=== PATIENT | female | born 1945 | race Caucasian/White ===

== ENCOUNTER 2018-08-16 19:40 | Inpatient (IN) | payer OTHER, MEDICARE ==
[~2018-08-16] VITALS: Ht 152.4 cm; Wt 88.1 kg
--- NOTE | 2018-08-16 19:47 | ED.ADGEN ---
Past History Past Medical History: Arthritis, CAD, Depression, Diabetes, GERD, High Cholesterol, Hypertension, Other Past Surgical History: Other Past Surgical History 08/15/18- rt PROS.[email or web address] Adult General Chief Complaint Chief Complaint ".. They sent me over because I am anemic..." HPI HPI Patient is a 73 year old FEMALE who presents with hx of anemia on CBC labs at [place] reports a Hgb of 6.4. Pt. under went Rt. Knee/Tib repair on . transfer to [place] for rehab. Pt. currently on Dr. Salgado service. Pt. follows with Dr. Taylor as primary. . Pt. has also medical hx of hypertension , hyperlipidemia, GERD, depression, allergic rhinitis, coronary artery disease, recent right Tibia and knee fracture with surgical repair and right ankle sprain. Review of Systems Review of Systems Constitutional: Denies fever or chills [] Eyes: Denies change in visual acuity, redness, or eye pain [] HENT: Denies nasal congestion or sore throat [] Respiratory: Denies cough or shortness of breath [] Cardiovascular: No additional information not addressed in HPI [] GI: Denies abdominal pain, nausea, vomiting, bloody stools or diarrhea [] : Denies dysuria or hematuria [] Musculoskeletal: Chronic back pain or joint pain. Generalized weakness. New Rt knee and ankle pain Integument: Denies rash or skin lesions [] Neurologic: Denies headache, focal weakness or sensory changes [] Endocrine: Denies polyuria or polydipsia [] All other systems were reviewed and found to be within normal limits, except as documented in this note. Family History Family History Non-contributory Current Medications Current Medications See Nursing from home meds Current Medications Medications (Trade) Dose Ordered Sig/Reed Start Time Stop Time Status Last Admin Dose Admin Acetaminophen (Tylenol) 1,000 mg 1X ONCE 08/16/18 20:00 08/16/18 20:43 DC Diphenhydramine HCl (Benadryl) 25 mg 1X ONCE 08/16/18 20:00 08/16/18 20:44 DC Ondansetron HCl (Zofran) 4 mg PRN Q4HRS PRN 08/16/18 20:00 08/16/18 22:19 DC Allergies Allergies Allergies Coded Allergies Type Severity Reaction Last Updated Verified Nitrate Analogues Allergy Unknown 08/16/18 Yes adhesive Allergy Unknown 08/16/18 Yes diphenhydramine Allergy Unknown 08/16/18 Yes latex Allergy Unknown 08/16/18 Yes mushroom Allergy Unknown 08/16/18 Yes Adhesives, Celebrex, Benadryl, Latex, Mushroom, Nitrate Analoges. Physical Exam Physical Exam Constitutional:, no acute distress, non-toxic appearance. [] HENT: Normocephalic, atraumatic, bilateral external ears normal, oropharynx moist, no oral exudates, nose normal. [] Eyes: PERRLA, EOMI, conjunctiva normal, no discharge. Glasses Neck: Normal range of motion, no tenderness, supple, no stridor. [] Cardiovascular:Heart rate regular rhythm, no murmur [] Lungs & Thorax: Bilateral breath sounds equal at apexes on auscultation [] Abdomen: Bowel sounds normal, soft, no tenderness, no masses, no pulsatile masses. [] Skin: Warm, dry, no erythema, no rash. Pale. Back: No tenderness, no CVA tenderness. [] Extremities: Upper arms no tenderness arms, no cyanosis, no clubbing, ROM intact, no edema. []Does have tenderness Rt leg and ankle. Hx.surgery in Rt.knee and ankle edema and pain. Rt knee splinted Neurologic: Alert and oriented X 3, moves all ext. on request, no gross sensory deficits noted, pt. reports no focal deficits noted. [] Psychologic: Affect anxious, judgement normal, mood normal. [] Current Patient Data Vital Signs Vital Signs Date Time Temp Pulse Resp B/P (MAP) Pulse Ox O2 Delivery O2 Flow Rate FiO2 08/16/18 19:40 100.0 83 18 96 Room Air Lab Results Laboratory Tests Test 08/16/18 20:15 White Blood Count 10.1 x10^3/uL (4.0-11.0) Red Blood Count 2.23 x10^6/uL (3.50-5.40) L Hemoglobin 6.7 g/dL (12.0-15.5) *L Hematocrit 19.7 % (36.0-47.0) *L Mean Corpuscular Volume 88 fL (79-100) Mean Corpuscular Hemoglobin 30 pg (25-35) Mean Corpuscular Hemoglobin Concent 34 g/dL (31-37) Red Cell Distribution Width 13.6 % (11.5-14.5) Platelet Count 211 x10^3/uL (140-400) Neutrophils (%) (Auto) 69 % (31-73) Lymphocytes (%) (Auto) 17 % (24-48) L Monocytes (%) (Auto) 13 % (0-9) H Eosinophils (%) (Auto) 1 % (0-3) Basophils (%) (Auto) 0 % (0-3) Neutrophils # (Auto) 6.9 x10^3uL (1.8-7.7) Lymphocytes # (Auto) 1.7 x10^3/uL (1.0-4.8) Monocytes # (Auto) 1.3 x10^3/uL (0.0-1.1) H Eosinophils # (Auto) 0.1 x10^3/uL (0.0-0.7) Basophils # (Auto) 0.0 x10^3/uL (0.0-0.2) Sodium Level 133 mmol/L (136-145) L Potassium Level 4.6 mmol/L (3.5-5.1) Chloride Level 99 mmol/L (98-107) Carbon Dioxide Level 29 mmol/L (21-32) Anion Gap 5 (6-14) L Blood Urea Nitrogen 16 mg/dL (7-20) Creatinine 0.8 mg/dL (0.6-1.0) Estimated GFR (Cockcroft-Gault) 70.5 Glucose Level 159 mg/dL (70-99) H Calcium Level 7.8 mg/dL (8.5-10.1) L Total Bilirubin 0.8 mg/dL (0.2-1.0) Direct Bilirubin 0.2 mg/dL (0.0-0.2) Aspartate Amino Transferase (AST) 32 U/L (15-37) Alanine Aminotransferase (ALT) 25 U/L (14-59) Alkaline Phosphatase 52 U/L (46-116) Total Protein 5.2 g/dL (6.4-8.2) L Albumin 2.4 g/dL (3.4-5.0) L EKG EKG [] Radiology/Procedures Radiology/Procedures [] Course & Med Decision Making Course & Med Decision Making Pertinent Labs and Imaging studies reviewed. (See chart for details) Pt. admitted for transfusion and serial hemoglobin checks. To Dr. Salgdao. [] Final Impression Final Impression 1. Anemia[]6.7 Hgb. 2. Hx. of Rt. Knee Tibia repair- 08-15-2018. 3. DM elevated Glucose 159 4. Malnutrition Alb. 2.4 5. Sub Therapeutic - INR 1.9 ( Holding Coumadin- currently)- Possible bleeding Dragon Disclaimer Dragon Disclaimer This electronic medical record was generated, in whole or in part, using a voice recognition dictation system. Dragon Disclaimer This chart was dictated in whole or in part using Voice Recognition software in a busy, high-work load, and often noisy Emergency Department environment. It may contain unintended and wholly unrecognized errors or omissions. Discharge Summary Visit Information Final Diagnosis Problems Medical Problems: (1) Anemia Status: Acute Brief Hospital Course Allergies Allergies Coded Allergies Type Severity Reaction Last Updated Verified Nitrate Analogues Allergy Unknown 08/16/18 Yes adhesive Allergy Unknown 08/16/18 Yes diphenhydramine Allergy Unknown 08/16/18 Yes latex Allergy Unknown 08/16/18 Yes mushroom Allergy Unknown 08/16/18 Yes Vital Signs Vital Signs Date Time Temp Pulse Resp B/P (MAP) Pulse Ox O2 Delivery O2 Flow Rate FiO2 08/16/18 23:09 Room Air 08/16/18 22:59 98.9 82 20 114/66 (82) 97 Lab Results Laboratory Tests Test 08/16/18 20:15 White Blood Count 10.1 x10^3/uL (4.0-11.0) Red Blood Count 2.23 x10^6/uL (3.50-5.40) Hemoglobin 6.7 g/dL (12.0-15.5) Hematocrit 19.7 % (36.0-47.0) Mean Corpuscular Volume 88 fL (79-100) Mean Corpuscular Hemoglobin 30 pg (25-35) Mean Corpuscular Hemoglobin Concent 34 g/dL (31-37) Red Cell Distribution Width 13.6 % (11.5-14.5) Platelet Count 211 x10^3/uL (140-400) Neutrophils (%) (Auto) 69 % (31-73) Lymphocytes (%) (Auto) 17 % (24-48) Monocytes (%) (Auto) 13 % (0-9) Eosinophils (%) (Auto) 1 % (0-3) Basophils (%) (Auto) 0 % (0-3) Neutrophils # (Auto) 6.9 x10^3uL (1.8-7.7) Lymphocytes # (Auto) 1.7 x10^3/uL (1.0-4.8) Monocytes # (Auto) 1.3 x10^3/uL (0.0-1.1) Eosinophils # (Auto) 0.1 x10^3/uL (0.0-0.7) Basophils # (Auto) 0.0 x10^3/uL (0.0-0.2) Prothrombin Time 18.1 SEC (9.4-11.4) Prothromb Time International Ratio 1.9 (0.9-1.1) Activated Partial Thromboplast Time 30 SEC (23-33) Sodium Level 133 mmol/L (136-145) Potassium Level 4.6 mmol/L (3.5-5.1) Chloride Level 99 mmol/L (98-107) Carbon Dioxide Level 29 mmol/L (21-32) Anion Gap 5 (6-14) Blood Urea Nitrogen 16 mg/dL (7-20) Creatinine 0.8 mg/dL (0.6-1.0) Estimated GFR (Cockcroft-Gault) 70.5 Glucose Level 159 mg/dL (70-99) Calcium Level 7.8 mg/dL (8.5-10.1) Total Bilirubin 0.8 mg/dL (0.2-1.0) Direct Bilirubin 0.2 mg/dL (0.0-0.2) Aspartate Amino Transf (AST/SGOT) 32 U/L (15-37) Alanine Aminotransferase (ALT/SGPT) 25 U/L (14-59) Alkaline Phosphatase 52 U/L (46-116) Total Protein 5.2 g/dL (6.4-8.2) Albumin 2.4 g/dL (3.4-5.0) Brief Hospital Course Ms. Kimbrough is a 73 old female who presented with anemia post knee replacement. Pt. admitted Dr. Salgado- transfusions, serial checks Hgb. Discharge Information Condition at Discharge: Stable Disposition/Orders: D/C to Another Facility Dischare Medications Current Medications Acetaminophen (Tylenol) 1,000 mg 1X ONCE PO ; Start 08/16/18 at 20:00; Stop at 20:43; Status DC Diphenhydramine HCl (Benadryl) 25 mg 1X ONCE PO ; Start 08/16/18 at 20:00; Stop 08/16/18 at 20:44; Status DC Ondansetron HCl (Zofran) 4 mg PRN Q4HRS PRN IV NAUSEA/VOMITING; Start 08/16/18 at 20:00; Stop 08/17/18 at 19:59 COURTNEY GRESHAM MD Aug 16, 2018 19:47
[2018-08-16] MEDS ORDERED: ONDANSETRON PF 4 MG/2 ML VIAL. IV PRN (20:00)
[2018-08-16] MEDS ORDERED: ACETAMINOPHEN 500 MG TABLET PO ONE (20:00)
[2018-08-16] MEDS ORDERED: diphenhydrAMINE HCL 25 MG CAPSULE PO ONE (20:00)
[2018-08-16 20:46] LABS: BASO % 0 % (0-3); EOS # 0.1 x10^3/uL (0.0-0.7); EOS % 1 % (0-3); LYMPH # 1.7 x10^3/uL (1.0-4.8); LYMPH % 17 % (24-48); MEAN CORPUSCULAR HEMOGLOBIN 30 pg (25-35); MEAN CORPUSCULAR HGB CONC 34 g/dL (31-37); MEAN CORPUSCULAR VOLUME 88 fL (79-100); MONO # 1.3 x10^3/uL (0.0-1.1); MONO % 13 % (0-9); NEUT # 6.9 x10^3uL (1.8-7.7); NEUT % 69 % (31-73); PLATELET COUNT 211 x10^3/uL (140-400); RED BLOOD COUNT 2.23 x10^6/uL (3.50-5.40); RED CELL DISTRIBUTION WIDTH 13.6 % (11.5-14.5); WHITE BLOOD COUNT 10.1 x10^3/uL (4.0-11.0)
[2018-08-16 20:53] LABS: HEMATOCRIT 19.7 % (36.0-47.0)
[2018-08-16 20:54] LABS: HEMOGLOBIN 6.7 g/dL (12.0-15.5)
[2018-08-16 20:56] LABS: ALBUMIN 2.4 g/dL (3.4-5.0); CALCIUM 7.8 mg/dL (8.5-10.1); CREATININE 0.8 mg/dL (0.6-1.0); DIRECT BILIRUBIN 0.2 mg/dL (0.0-0.2); GFR 70.5; POTASSIUM 4.6 mmol/L (3.5-5.1); TOTAL BILIRUBIN 0.8 mg/dL (0.2-1.0); TOTAL PROTEIN 5.2 g/dL (6.4-8.2)
[2018-08-16 22:59] VITALS: BP 114/66
[2018-08-16] MEDS ORDERED: SENN1TAB21 PO (23:35)
[2018-08-16] MEDS ORDERED: MULT1TAB52 PO (23:35)
[2018-08-16] MEDS ORDERED: ACET325T9 PO (23:35)
[2018-08-16] MEDS ORDERED: CITA10TA8 PO (23:35)
[2018-08-16] MEDS ORDERED: POTA20TA4 PO (23:35)
[2018-08-16] MEDS ORDERED: OXYC1TAB15 PO (23:35)
[2018-08-16] MEDS ORDERED: POLY17PO5 PO (23:35)
[2018-08-16] MEDS ORDERED: CALC-157 PO (23:35)
[2018-08-17] VITALS (10 sets, daily range): BP systolic 100–133; BP diastolic 50–78
[2018-08-17] MEDS ORDERED: SENNOSIDES/DOCUSATE 8.6/50MG TABLET. PO PRN
[2018-08-17] MEDS ORDERED: ACETAMINOPHEN 325 MG TABLET PO PRN
[2018-08-17] MEDS ORDERED: WARF1TAB74 PO (00:05)
[2018-08-17] MEDS ORDERED: PROP15DR40 EACHEYE (00:05)
[2018-08-17] MEDS ORDERED: ATORVASTATIN CA80 MG PO (00:05)
[2018-08-17] MEDS ORDERED: RAMI10CA53 PO (00:05)
[2018-08-17] MEDS ORDERED: NIAC1000 PO (00:05)
[2018-08-17] MEDS ORDERED: CARV25TA2 PO (00:05)
[2018-08-17] MEDS ORDERED: OMEP20TA8 PO (00:05)
[2018-08-17] MEDS ORDERED: UBID200C7 PO (00:05)
[2018-08-17] MEDS ORDERED: FLUT9.9S NS (00:05)
[2018-08-17] MEDS ORDERED: GLUC-12 PO (00:08)
[2018-08-17] MEDS: oxyCODONE/APAP 5/325 1 TAB TABLET PO PRN ×2 (00:18→20:10)
[2018-08-17 04:03] LABS: HEMATOCRIT 22.3 % (36.0-47.0); HEMOGLOBIN 7.7 g/dL (12.0-15.5); RED BLOOD COUNT 2.56 x10^6/uL (3.50-5.40); RED CELL DISTRIBUTION WIDTH 13.4 % (11.5-14.5); WHITE BLOOD COUNT 9.1 x10^3/uL (4.0-11.0)
[2018-08-17] MEDS: CITALOPRAM 10 MG TABLET. PO SCH ×2 (08:37→09:00)
[2018-08-17] MEDS: CALCIUM CARB/VIT D3 500/200 TABLET PO SCH ×2 (08:38→20:10)
[2018-08-17] MEDS: POTASSIUM CHLORIDE 20 MEQ TABLET.ER. PO SCH ×2 (08:38→20:10)
[2018-08-17] MEDS: POLYETHYLENE GLYCOL 3350 17 GM PACKET. PO SCH (08:38)
[2018-08-17] MEDS: MULTIVITAMIN with MINERAL TABLET. PO SCH (08:38)
[2018-08-17] MEDS: LISINOPRIL 20 MG TABLET PO SCH (10:59)
[2018-08-17] MEDS: GLUCOSAMINE/CHOND 500/400MG CAPSULE PO SCH ×2 (10:59→20:15)
[2018-08-17] MEDS: CARVEDILOL 12.5 MG TABLET PO SCH ×2 (10:59→20:13)
[2018-08-17] MEDS: PANTOPRAZOLE 40 MG TABLET. PO SCH (11:00)
[2018-08-17] MEDS: POLYVINYL ALCOHOL/POVIDONE/PF OPHTH SOLUTION DROPERETTE. OU SCH ×2 (11:01→20:13)
[2018-08-17] MEDS: FLUTICASONE 50MCG/NASAL SPRAY 16GM BOTTLE. NS SCH ×2 (11:03→20:14)
--- NOTE | 2018-08-17 11:53 | HP ---
ADMIT DATE: 08/16/2018 HISTORY OF PRESENT ILLNESS: A 73-year-old female came in with anemia, apparently recently had a procedure done on a possible knee fracture and surgical repair and also severe right ankle sprain. She was noted to be very weak and pale, came in, received 1 unit of packed RBCs. Her initial hemoglobin was 6.7 and 19.7. White count was stable. She also is type 2 diabetic. The patient was admitted for further evaluation of her anemia post-surgery or possible some other source of such. PAST MEDICAL HISTORY: Tonsillectomy, adenoidectomy, transient ischemic attack, cardiac disorders, coronary artery disease, open heart surgery, anticoagulation therapy, hypertension, sleep apnea with CPAP, gastrointestinal disorder, obesity, gastroesophageal reflux disease, reproductive disorders, hysterectomy, degenerative arthritis, femur repair on 08/13/2018, fracture of the femur toe and right tibia-fibula. She has had a history of depression, smoking, quit 50 years ago, some smoking exposure. She has had immunizations influenza up-to-date. FAMILY HISTORY: Sister with systemic lupus. Father with a stent. Mother with myocardial infarction. Mother and brother with lung cancer, father with emphysema, coronary artery disease in the father and the mother, CABG in the mother and brother. Brother: Two brothers . Father, mother and history of stroke in the mother, chronic kidney disease in the father before passing, but adverse reactions to nitrate analogs, adhesive, diphenhydramine, latex and mushrooms. Her medications have been reconciled. See chart for those. She is approximately 18 of those. She is on warfarin. Protimes are being monitored. She says the warfarin is probably just related to her recent surgery. Nurses are going to check to see how long that is required. SOCIAL HISTORY: Presently denies smoking, alcohol or drug use. Lives out at [place]. REVIEW OF SYSTEMS: The patient denies any headaches, visual changes, blurred vision, double vision; looks pale, however. PHYSICAL EXAMINATION: VITAL SIGNS: Blood pressure presently 120/70, respiratory rate 18, pulse 76, afebrile. The patient is on BiPAP, CPAP. The patient otherwise did run a low grade temperature when she first came in at 100 degrees, but that has come down. GENERAL: Otherwise, she denies chest pain, shortness of breath, abdominal pain. Denies any melena, hematochezia, or hematemesis. Pain is worse primarily in the right lower distal tibia-fibula and ankle area. LUNGS: Otherwise, lungs are diminished but clear. CARDIOVASCULAR: Regular sinus rhythm. ABDOMEN: Soft, nontender, no rebounding, no guarding. EXTREMITIES: Right leg thigh all the way down to the ankle wrapped. Pulses noted distally. NEUROLOGIC: Alert and oriented x 3. She does have a pale appearance. LABORATORY DATA AND IMAGING STUDIES: The patient will get a chest x-ray because of the temperature and obviously postop looking for any source of possible infection as well as a UA and the like. As noted, her initial hemoglobin was 6.7 and 19, hemoglobin presently after one unit 7.7 and 22. We will do fecal occults as well as iron just to make sure that there is nothing more going on there and get a chest x-ray. IMPRESSION AND PLAN: Post-procedural anemia, low grade temperature, previous history of fracture of the femur with repair of such done here over a week ago. We will continue to monitor the patient and accordingly make further evaluation on her as indicated. DEUCE TONY MD DR: KAITLYN/donna JOB#: [id number] / [id number]
[2018-08-17] MEDS ORDERED: NIACIN ER 500 MG TABLET.ER PO SCH (21:00)
[2018-08-17] MEDS ORDERED: UBIDECARENONE 50 MG CAPSULE. PO SCH (21:00)
[2018-08-17] MEDS ORDERED: ATORVASTATIN CALCIUM 20 MG TABLET PO SCH (21:00)
[2018-08-17] MEDS ORDERED: CITALOPRAM 10 MG TABLET. PO SCH (21:15)
[2018-08-17 23:09] LABS: BACTERIA,URINE 0 /HPF (0-FEW); BILIRUBIN,URINE NEG (NEG); CLARITY,URINE CLEAR; COLOR,URINE YELLOW; GLUCOSE,URINE NEG (NEG); NITRITE,URINE NEG (NEG); RBC,URINE 0 /HPF (0-2); SQUAMOUS EPITHELIAL CELL,UR OCC /LPF; UROBILINOGEN,URINE 1 mg/dL (0.2 mg/dL)
[2018-08-18 05:32] VITALS: BP 122/69
[2018-08-18] MEDS: PANTOPRAZOLE 40 MG TABLET. PO SCH (06:01)
[2018-08-18 06:31] LABS: BASO # 0.1 x10^3/uL (0.0-0.2); BASO % 1 % (0-3); EOS # 0.2 x10^3/uL (0.0-0.7); EOS % 2 % (0-3); HEMATOCRIT 23.4 % (36.0-47.0); HEMOGLOBIN 7.9 g/dL (12.0-15.5); LYMPH # 1.8 x10^3/uL (1.0-4.8); LYMPH % 19 % (24-48); MEAN CORPUSCULAR HEMOGLOBIN 30 pg (25-35); MEAN CORPUSCULAR HGB CONC 34 g/dL (31-37); MEAN CORPUSCULAR VOLUME 89 fL (79-100); MONO # 0.9 x10^3/uL (0.0-1.1); MONO % 10 % (0-9); NEUT # 6.3 x10^3uL (1.8-7.7); NEUT % 68 % (31-73); PLATELET COUNT 231 x10^3/uL (140-400); RED BLOOD COUNT 2.63 x10^6/uL (3.50-5.40); RED CELL DISTRIBUTION WIDTH 13.7 % (11.5-14.5); WHITE BLOOD COUNT 9.2 x10^3/uL (4.0-11.0)
--- NOTE | 2018-08-18 08:03 | RAD ---
PORTABLE CHEST 1V Clinical indications: Fever post op for femur fx COMPARISON: April 30, 2008. Findings: No acute lung infiltrate or pleural effusion or pulmonary edema or lung mass or pneumothorax is seen. The heart size, pulmonary vasculature, mediastinum and both lien are stable. Impression: No acute radiographic abnormality is seen. Electronically signed by: Reinier Zelaya MD (08/18/2018 7:59 AM) [facility]
[2018-08-18] MEDS ORDERED: FERR325T72 PO (08:35)
[2018-08-18] MEDS: GLUCOSAMINE/CHOND 500/400MG CAPSULE PO SCH (08:42)
[2018-08-18] MEDS: FLUTICASONE 50MCG/NASAL SPRAY 16GM BOTTLE. NS SCH (08:42)
[2018-08-18] MEDS: POLYETHYLENE GLYCOL 3350 17 GM PACKET. PO SCH ×2 (08:43→08:46)
[2018-08-18] MEDS: LISINOPRIL 20 MG TABLET PO SCH (08:43)
[2018-08-18] MEDS: oxyCODONE/APAP 5/325 1 TAB TABLET PO PRN (08:43)
[2018-08-18] MEDS: CALCIUM CARB/VIT D3 500/200 TABLET PO SCH (08:43)
[2018-08-18] MEDS: POTASSIUM CHLORIDE 20 MEQ TABLET.ER. PO SCH (08:43)
[2018-08-18] MEDS: MULTIVITAMIN with MINERAL TABLET. PO SCH (08:43)
[2018-08-18 08:44] VITALS: BP 122/69
[2018-08-18] MEDS: CARVEDILOL 12.5 MG TABLET PO SCH (08:44)
[2018-08-18] MEDS: POLYVINYL ALCOHOL/POVIDONE/PF OPHTH SOLUTION DROPERETTE. OU SCH (08:44)
--- NOTE | 2018-08-18 16:35 | DS ---
DATE OF DISCHARGE: 08/18/2018 HOSPITAL COURSE: A 73-year-old female back on 08/12/2018 had severe pain in her right leg above the knee and her ankle as she had fallen. She was transported to [facility] where she has had previous knee surgery, Dr. Clifton noted vector control specialist, she had a periprosthetic distal femur fracture on the right. Dr. Clifton took her to surgery, the fracture was provisionally reduced and a distal femoral locking plate was placed. The shaft had a fixation and alignment was performed there. The joint itself low replacement had been stable and was referred to as an operative reduction and internal fixation of the right periprosthetic distal femur fracture with locked plate and screw fixation. There also was an acute medial fracture of the distal femur just above the femoral component with fracture lines entering the lateral femoral condyle. In any case, she had surgery down there at [place] and was brought back up here to [facility] for continued rehabilitation. It was noted that she was extremely pale and diaphoretic. She came in through the Emergency Room and was noted to be markedly post-procedural anemic. Her hemoglobin dropped down to 6.7 and 19, otherwise cardiovascular [place] she was stable. Labs did demonstrate she was low on her iron of just 12. She was placed on iron supplementation. The patient received 2 units of packed RBCs. Her hemoglobin stabilized at 7.9 and 23, white count 9.2. The patient otherwise made good progress. She felt much improved. She will be taken back to [place] for continue her rehabilitation care. IMPRESSION: Post-procedural anemia, low grade temperature, previous fracture of the femur and repair done over a week prior to that down to [place] for Dr. Clifton. She will be discharged back. She will follow up with her primary care physician. She will be on a regular diet, decreased activity, told to take some extra vitamin D and calcium and follow up with her provider on other medical needs. DEUCE TONY MD DR: KAITLYN/donna JOB#: [id number] / [id number]
[2018-08-19] MEDS ORDERED: FERROUS SULFATE 325 MG TABLET. PO SCH (08:00)
== END 2018-08-18 09:15 | DRG 812 ==
LOC: ER 19:40 → 1 SOUTH 20:00 → ER 22:00
PROVIDERS: ADMIT Internal Medicine; ATTEND Internal Medicine
PROC: 30233N1 Transfusion of Nonautologous Red Blood Cells into Peripheral Vein, Percutaneous Approach (ICD-10-PCS; principal; 2018-08-16)
PROC: 5A09357 Assistance with Respiratory Ventilation, Less than 24 Consecutive Hours, Continuous Positive Airway Pressure (ICD-10-PCS; 2018-08-16)
PROC: 5A09357 Assistance with Respiratory Ventilation, Less than 24 Consecutive Hours, Continuous Positive Airway Pressure (ICD-10-PCS; 2018-08-17)
DX: D64.9 Anemia, unspecified (principal); E11.9 Type 2 diabetes mellitus without complications; E78.00 Pure hypercholesterolemia, unspecified; E78.5 Hyperlipidemia, unspecified; G47.30 Sleep apnea, unspecified; I10 Essential (primary) hypertension; F32.9 Major depressive disorder, single episode, unspecified; I25.10 Atherosclerotic heart disease of native coronary artery without angina pectoris; K21.9 Gastro-esophageal reflux disease without esophagitis; E66.9 Obesity, unspecified; M19.90 Unspecified osteoarthritis, unspecified site; Z80.1 Family history of malignant neoplasm of trachea, bronchus and lung; J30.9 Allergic rhinitis, unspecified; Z82.3 Family history of stroke; Z82.49 Family history of ischemic heart disease and other diseases of the circulatory system; Z82.5 Family history of asthma and other chronic lower respiratory diseases; Z86.73 Personal history of transient ischemic attack (TIA), and cerebral infarction without residual deficits; Z90.710 Acquired absence of both cervix and uterus; Z68.37 Body mass index [BMI] 37.0-37.9, adult; Z91.040 Latex allergy status; Z88.8 Allergy status to other drugs, medicaments and biological substances; Z91.018 Allergy to other foods
CPT/HCPCS: 36415; 71045; 80048; 80076; 81001; 83540; 83550; 85025; 85027; 85045; 85610; 85730; 86850; 86900; 86901; 86920; 87641; G0238; P9016; 99285-25

== ENCOUNTER → 2021-06-09 | Outpatient (CLI) | payer MEDICARE, OTHER ==
[~2021-06-09] MED LIST: ACET325T9 PO; ATORVASTATIN CA80 MG PO; CALC-157 PO; CARV25TA2 PO; CITA10TA8 PO; FERR325T72 PO; FLUT9.9S NS; GLUC-12 PO; MULT-445 PO; NIAC1000 PO; OMEP20TA8 PO; OXYC1TAB15 PO; POLY17PO5 PO; POTA-121 PO; PROP15DR40 EACHEYE; RAMI10CA53 PO; SENN1TAB62 PO; UBID200C7 PO; WARF1TAB2 PO
--- NOTE | 2021-06-09 11:07 | RAD ---
EXAM: Lumbar spine, 5 views. HISTORY: Fall. Pain. COMPARISON: None. FINDINGS: 5 views of the lumbar spine are obtained. There is rotatory levoscoliosis centered at L3. T here is no significant listhesis. There is multilevel endplate remodeling with disc space narrowing, osteophytosis, Schmorl's node formation and facet arthropathy. The degenerative changes are most sana cative along the right aspects of L3-L4 and L4-L5, corresponding with levels of maximum scoliotic con cavity. IMPRESSION: 1. Multilevel degenerative change, described in detail above. 2. Lumbar rotatory scoliosis. Electronically signed by: Guerita Constantino MD (06/09/2021 11:05 AM) [id number]
== END ==
LOC: RAD 10:45
PROVIDERS: ATTEND Internal Medicine
DX: M47.816 Spondylosis without myelopathy or radiculopathy, lumbar region (principal); M48.061 Spinal stenosis, lumbar region without neurogenic claudication; M41.86 Other forms of scoliosis, lumbar region; M51.46 Schmorl's nodes, lumbar region
CPT/HCPCS: 72110